=== PATIENT | female | born 1950 | race Caucasian/White ===

== ENCOUNTER → 2017-08-08 | Outpatient (CLI) | payer BC | END | disposition home or self-care (01) | LOC: C.MAMM 14:20 | PROVIDERS: ATTEND Family Medicine | DX: M85.88 Other specified disorders of bone density and structure, other site (principal); M85.852 Other specified disorders of bone density and structure, left thigh; M85.851 Other specified disorders of bone density and structure, right thigh ==

== ENCOUNTER → 2017-09-17 | Outpatient (CLI) | payer BC ==
--- NOTE | 2017-09-17 13:08 | MAMMOGRAPHY REPORT ---
BILATERAL DIGITAL SCREENING MAMMOGRAM TOMOSYNTHESIS WITH CAD: 09/17/2017 CLINICAL HISTORY: Routine screening. Patient has no complaints. TECHNIQUE: Breast tomosynthesis in addition to standard 2D mammography was performed. Current study was also evaluated with a Computer Aided Detection (CAD) system. COMPARISON: Comparison is made to exams dated: 09/13/2016 mammogram, 09/09/2015 mammogram, 4 mammogram, 08/17/2013 mammogram, 08/14/2012 mammogram, and 08/07/2011 mammogram - [facility]. BREAST COMPOSITION: The tissue of both breasts is heterogeneously dense, which may obscure small mas ses. FINDINGS: There is a possible 9 mm mass in the 6:00 to 7:00 anterior left breast, for which addition al targeted ultrasound and possible additional mammographic views are recommended. There are stable loosely grouped round and punctate microcalcifications in each breast. No other jovan picious mass, asymmetry, area of architectural distortion or cluster of microcalcifications is seen. IMPRESSION: ACR BI-RADS CATEGORY 0: INCOMPLETE EVALUATION: NEED ADDITIONAL IMAGING EVALUATION The possible 9 mm mass in the inferior, anterior left breast needs additional evaluation. The patient will be called to schedule an appointment. Approximately 10% of breast cancers are not detected with mammography. A negative mammographic report should not delay biopsy if a clinically suggestive mass is present. Anisha Camacho M.D. ay/:09/17/2017 08:09:50 Primer Inserting Machine Operator: Danette Felipe, [facility] letter sent: Need Priors 0 BI-RADS Code: ACR BI-RADS Category 0: Incomplete Evaluation: Need Additional Imaging Evaluation
== END | disposition home or self-care (01) ==
LOC: C.MAMM 07:31
PROVIDERS: ATTEND Family Medicine
DX: Z12.31 Encounter for screening mammogram for malignant neoplasm of breast (principal)

== ENCOUNTER → 2017-09-26 | Outpatient (CLI) | payer BC ==
--- NOTE | 2017-09-26 13:47 | MAMMOGRAPHY REPORT ---
UNILATERAL LEFT DIGITAL DIAGNOSTIC MAMMOGRAM TOMOSYNTHESIS WITH CAD AND TARGETED LEFT ULTRASOUND: CLINICAL HISTORY: Callback from screening mammogram for possible left breast mass. TECHNIQUE: Breast tomosynthesis in addition to standard 2D mammography was performed. Current study was also evaluated with a Computer Aided Detection (CAD) system. Spot compression left CC and MLO to mosynthesis images including C views were obtained. COMPARISON: Comparison is made to exams dated: 09/17/2017 mammogram, 09/13/2016 mammogram, 5 mammogram, 08/19/2014 mammogram, 08/17/2013 mammogram, and 08/14/2012 mammogram - [facility]. BREAST COMPOSITION: The tissue of the left breast is heterogeneously dense, which may obscure small masses. FINDINGS: Spot compression views demonstrate a persistent 9 mm nodular asymmetry within the left inf erior breast on the MLO tomosynthesis images, thought to project laterally based on the tomosynthesis localizer bar. On the cc tomosynthesis spot compression view, the asymmetry is felt to be partially visualized at approximately 6:00. When compared to prior exams, a similar asymmetry was seen in thi s region on the prior to the views including the 2013 and 2012 exams. Targeted ultrasound was performed of the left inferior breast in the region of the mammographic asymm etry. In the left breast at 5:00, approximately 2 cm from the nipple, there is a circumscribed anech oic mass with multiple thin internal septations which measures 7 x 8 x 5 mm. This is felt to corresp ond with the mammographic asymmetry and is probably benign and likely represents a complicated cyst/c yst cluster. IMPRESSION: ACR-BI-RADS CATEGORY 3: PROBABLY BENIGN, TARGETED ULTRASOUND ACR-BI-RADS CATEGORY 3: PRO BABLY BENIGN Persistent nodular asymmetry within the left inferior breast on the additional mammographic views. A cystic 8 mm mass is seen within the left 5:00 breast on ultrasound which is felt to correspond with the mammographic asymmetry. The mass is probably benign and likely represents a complicated cyst/cys t cluster. Recommend follow-up diagnostic tomosynthesis mammograms and possible ultrasound of the le ft breast in 6 months to confirm stability. The patient has been verbally notified of the results. Approximately 10% of breast cancers are not detected with mammography. A negative mammographic report should not delay biopsy if a clinically suggestive mass is present. Laura Baltazar M.D. ah/:09/26/2017 11:37:29 Poultry Boner: Linda SALAS)(Giuseppe), [facility] letter sent: Follow Up Recommended 3 BI-RADS Code: ACR-BI-RADS Category 3: Probably Benign Ultrasound BI-RADS: ACR-BI-RADS Category 3: Pr obably Benign
== END | disposition home or self-care (01) ==
LOC: C.MAMM 08:46
PROVIDERS: ATTEND Family Medicine
DX: N64.89 Other specified disorders of breast (principal); N63.20 Unspecified lump in the left breast, unspecified quadrant